=== PATIENT | female | born 1940 | race Asian ===

== ENCOUNTER 2019-04-19 14:32 | Emergency (ER) | payer OTHER, MEDICAID ==
[~2019-04-19] VITALS: Ht 157.5 cm; Wt 54.5 kg
[2019-04-19] MEDS ORDERED: ACETAMINOPHEN 325 MG TABLET PO ONE (15:00)
[2019-04-19 16:10] VITALS: BP 120/76
== END 2019-04-19 16:40 | disposition home or self-care (01) ==
LOC: EMS 14:33
DX: S09.90XA Unspecified injury of head, initial encounter (principal); V49.9XXA Car occupant (driver) (passenger) injured in unspecified traffic accident, initial encounter; Y93.89 Activity, other specified; Y92.488 Other paved roadways as the place of occurrence of the external cause; Y99.8 Other external cause status
CPT/HCPCS: 70450; 72125